=== PATIENT | female | born 1995 | race Caucasian/White ===

== ENCOUNTER 2016-05-29 07:03 | Inpatient (IN) | payer BC ==
[~2016-05-29] VITALS: Ht 160 cm; Wt 75.7 kg
[~2016-05-29 07:03] MED LIST: FERR325C PO; PREN1TAB49 PO
[2016-05-29] MEDS ORDERED: LACTATED RINGER'S 1,000 ML IV SCH (07:23)
[2016-05-29] MEDS ORDERED: CARBOPROST 250 MCG INJ IM PRN ×2 (07:30→08:00)
[2016-05-29] MEDS ORDERED: LACTATED RINGER'S 1,000 ML IV PRN (07:30)
[2016-05-29] MEDS ORDERED: LIDOCAINE 1% (MPF) 30 ML INJ INJ PRN (07:30)
[2016-05-29] MEDS ORDERED: OXYTOCIN 30 UNITS/LR 500 ML IV PRN ×2 (07:30→08:00)
[2016-05-29] MEDS ORDERED: METHYLERGONOVINE 0.2 MG INJ IM PRN ×2 (07:30→08:00)
[2016-05-29] MEDS ORDERED: MISOPROSTOL 200 MCG TAB PR PRN ×2 (07:30→08:00)
[2016-05-29] MEDS ORDERED: OXYTOCIN 10 UNIT INJ IM ONE (07:30)
[2016-05-29] MEDS ORDERED: LACTATED RINGER'S 1,000 ML IV* SCH (07:44)
--- NOTE | 2016-05-29 07:52 | HP ---
Date/Time of Note Date/Time of Note DATE: 05/29/16 TIME: 07:48 OB - History Hx of Present Free Text/Dictation 20 y.o. with an IUP at 39 came weeks came in active labor and was completely dilated at admission and ready to deliver. Estimated Due Date: Jun 05, 2016 : 2 Para: 1 Care: Good Care (per pt) Ultrasounds: Normal mid trimester US (per pt.) Obstetrical Complications: None Medical Complications: None Past Family/Social History * Past Medical, Surgical, Family and Obstetric Histories reviewed with pt as her prenatals were not available. Blood Type: Unknown Rubella: unknown RPR/VDRL: Unknown GBS Status: Unknown HBsAG: Unknown OB Admission Exam Physical Exam HEENT: WNL Heart: Rhythm Normal Lungs: Clear Abdomen: WNL Extremities: Normal Reflexes: Normal Cervical Dilatation: 10cm Effacement: 100% Station: +3 Membranes: Intact Amniotic Fluid: Thin Meconium Heart Rate: 140's Accelerations: Accelerations Present Decelerations: No Decelerations Varibility: Moderate Contractions on Admission: < 5 Minutes Apart OB Assessment/Plan Reason for admission: active labor Plan: Expectant Management FREEDOM CARBAJAL MD May 29, 2016 07:51
--- NOTE | 2016-05-29 07:55 | LDN ---
Date/Time of Note Date/Time of Note DATE: 05/29/16 TIME: 07:52 Delivery Summary BOA of a viable baby boy [id number] grams, or 7# 2oz, 19.5" long, and with Apgars of 9/9. Placenta Delivered: Spontaneously Meconium: Light Perineum intact?: Yes Anesthesia type: None Estimated blood loss: 250 Sponge & Needle done & correct: Yes Any foreign bodies felt in the: No (vagina) Problems: Delivery Information Sex Sex: male Apgars 1 Minute: 9 5 Minute: 9 Suctioning Nose & mouth suctioned at helene: No Delee suction performed: No Umbilical Cord Umbilical cord with: 3 Vessels Cord presentations: no nuchal cord Cord Blood was obtained: Yes Mother & Baby Disposition Disposition Baby to NICU: No FREEDOM CARBAJAL MD May 29, 2016 07:55
[2016-05-29] MEDS ORDERED: LANOLIN 7 GM TUBE TOP PRN (08:00)
[2016-05-29] MEDS ORDERED: OXYCODONE/ASPIRIN (4.88/325) TAB PO PRN (08:00)
[2016-05-29 08:01] VITALS: Ht 160 cm; Wt 75.7 kg
[2016-05-29 08:02] VITALS: BP 122/90; PULSE 103; RESP 18
[2016-05-29 08:02] LABS: ADD SCAN DIFF NO
[2016-05-29 08:06] LABS: BASOPHILS % 0.2 % (0.0-2.0); EOSINOPHILS # 0.1 10^3/ul (0.0-0.5); EOSINOPHILS % 0.5 % (0.0-7.0); HEMATOCRIT 37.7 % (37.0-47.0); HEMOGLOBIN 12.4 g/dl (12.0-16.0); LYMPHOCYTES % 16.8 % (18.0-55.0); MEAN CORPUSCULAR HEMOGLOBIN 31.3 pg (29.0-33.0); MEAN CORPUSCULAR HGB CONC 32.9 g/dl (32.0-37.0); MEAN CORPUSCULAR VOLUME 95.2 fl (72.0-104.0); MEAN PLATELET VOLUME 10.1 fl (7.4-10.4); MONOCYTE # 0.7 10^3/ul (0.3-0.9); MONOCYTES % 5.8 % (0.0-13.0); NEUTROPHIL # 8.9 10^3/ul (1.6-7.5); NEUTROPHILS % 75.9 % (30.0-74.0); PLATELET COUNT 263 10^3/UL (140-415); RED BLOOD COUNT 3.96 10^6/ul (4.20-5.40); RED CELL DISTRIBUTION WIDTH 14.6 % (11.5-14.5); WHITE BLOOD COUNT 11.7 10^3/ul (4.8-10.8)
[2016-05-29 08:26] LABS: INR 0.8; PROTIME 11.1 Sec (12.2-14.2); PT RATIO 0.9
[2016-05-29 08:27] LABS: PARTIAL THROMBOPLASTIN TIME 23.8 Sec (25.0-35.0)
[2016-05-29] MEDS ORDERED: OXYTOCIN 30 UNITS/LR 500 ML IVPB ONE (08:30)
[2016-05-29] MEDS: OXYTOCIN 30 UNITS/LR 500 ML IV SCH ×2 (08:42→12:51)
[2016-05-29] MEDS: IBUPROFEN 600 MG TAB PO SCH ×3 (11:59→23:58)
[2016-05-29 15:10] VITALS: BP 114/66; PULSE 66; RESP 16
[2016-05-29 19:30] VITALS: BP 120/75; PULSE 70; RESP 20
[2016-05-30 03:21] VITALS: BP 114/62; PULSE 75; RESP 20
[2016-05-30] MEDS: IBUPROFEN 600 MG TAB PO SCH ×4 (05:38→23:23)
[2016-05-30 05:55] LABS: ADD SCAN DIFF NO
[2016-05-30 06:04] LABS: BASOPHILS % 0.2 % (0.0-2.0); EOSINOPHILS # 0.2 10^3/ul (0.0-0.5); EOSINOPHILS % 1.2 % (0.0-7.0); HEMATOCRIT 33.8 % (37.0-47.0); HEMOGLOBIN 11.2 g/dl (12.0-16.0); LYMPHOCYTES # 1.7 10^3/ul (0.8-2.9); LYMPHOCYTES % 12.2 % (18.0-55.0); MEAN CORPUSCULAR HEMOGLOBIN 31.7 pg (29.0-33.0); MEAN CORPUSCULAR HGB CONC 33.1 g/dl (32.0-37.0); MEAN CORPUSCULAR VOLUME 95.8 fl (72.0-104.0); MEAN PLATELET VOLUME 10.1 fl (7.4-10.4); MONOCYTE # 0.8 10^3/ul (0.3-0.9); MONOCYTES % 5.8 % (0.0-13.0); NEUTROPHIL # 10.8 10^3/ul (1.6-7.5); PLATELET COUNT 235 10^3/UL (140-415); RED BLOOD COUNT 3.53 10^6/ul (4.20-5.40); RED CELL DISTRIBUTION WIDTH 14.6 % (11.5-14.5); WHITE BLOOD COUNT 13.5 10^3/ul (4.8-10.8)
[2016-05-30 08:00] VITALS: BP 115/58; PULSE 91; RESP 18
--- NOTE | 2016-05-30 11:14 | QN ---
Documentation Comment PPD #1 No complaints and feeling well. + w/o a problem. T= 98.3 BP 115/58 Fundus is firm. Lochia minimal. Ext 1+ edema. WBC 13.5 Hgb 11.2 P: Plan d/c for tomorrow. FREEDOM CARBAJAL MD May 30, 2016 11:14
[2016-05-30 16:16] VITALS: BP 96/48; RESP 18
[2016-05-30 19:30] VITALS: BP 122/61; PULSE 75; RESP 20
[2016-05-31 04:33] VITALS: BP 110/60; PULSE 68; RESP 20
[2016-05-31] MEDS: IBUPROFEN 600 MG TAB PO SCH ×2 (05:14→12:00)
[2016-05-31 08:10] VITALS: BP 96/58; PULSE 89; RESP 18
[2016-05-31] MEDS ORDERED: DIPHTH/TET/ACEL PERTUSS (ADULT) 0.5 ML VIAL IM* ONE (09:00)
--- NOTE | 2016-05-31 13:04 | DS ---
Date/Time of Note Date/Time of Note DATE: 05/31/16 TIME: 13:02 Obstetrical Discharge Record Final Diagnosis Final Diagnosis: Term delivered Vaginal Delivery Obstetrical Delivery: Spontaneous Condition on Discharge Physical Assessment Last Vitals: Post normal vaginal delivery day 2, afebrile abdomen soft uterus firm lochia normal extremity normal patient discharged with recommendation and instruction for advised to make appointment in 2 weeks to be seen at the clinic Voiding: Yes Bowel Movement: Yes Breast: Filling Fundus: Firm Calf Tenderness: No Patient Condition: Good LAINE KINSEY MD May 31, 2016 13:04
--- NOTE | 2016-05-31 13:06 | PD.PPDC ---
[employer] Discharge Instruction Condition Patient Condition: Good Diet Diet: Resume Regular Diet Activity/Restrictions Activity: Normal Activity May Shower Restrictions: No Exercising No Lifting No Driving No Sexual Activity Nothing in the Vagina No [place]en No Tampons, douche Follow-up Follow-up with Physician: 2, Week/Weeks Provider Information: Appointment clinic in 2 weeks for check Return to clinic for [facility] Instructions: Fever greater than 101 Chills Worsening abdominal pain Excessive Vaginal Bleeding More than 2 pads per hour Unable to tolerate diet OB Instructions: Breast Tenderness Blurried Vision Headache LAINE KINSEY MD May 31, 2016 13:06
== END 2016-05-31 15:10 | disposition home or self-care (01) | DRG 775 ==
LOC: OBT 07:03 → L-D 07:04 → OBT 07:14 → L-D 07:15 → PP1 14:37
PROVIDERS: ADMIT Obstetrics & Gynecology; ATTEND Obstetrics & Gynecology
PROC: 10E0XZZ Delivery of Products of Conception, External Approach (ICD-10-PCS; principal; 2016-05-29)
DX: O80 Encounter for full-term uncomplicated delivery (principal); Z3A.39 39 weeks gestation of pregnancy; Z37.0 Single live birth
CPT/HCPCS: 85025; 85610; 85730; 86592; 86900; 86901; 87340; 90715; G0463; J2590; J7120